=== PATIENT | male | born 1995 | race Hispanic/Latino ===

== ENCOUNTER 2022-03-25 12:07 | Outpatient (CLI) | payer BC | END 2022-03-25 12:08 | disposition home or self-care (01) | LOC: CSHULT 12:07 | PROVIDERS: ATTEND Internal Medicine Gastroenterology | DX: R79.89 Other specified abnormal findings of blood chemistry (principal); E66.9 Obesity, unspecified; R16.0 Hepatomegaly, not elsewhere classified | CPT/HCPCS: 76705 ==

== ENCOUNTER 2022-04-18 09:30 | Day surgery (SDC) | payer BC ==
[2022-04-14 13:12] VITALS: BMI 34.5
[2022-04-18 10:18] VITALS: TEMP 98.8
[2022-04-18 10:44] LABS: #Basophils 0.1 10x3/uL (0.0-0.2); #Eosinphils 0.3 10x3/uL (0.0-0.5); #Monocytes 0.7 10x3/uL (0.0-1.1); #Neutrophils 5.9 10x3/uL (1.5-8.4); %Basophils 0.5 % (0.0-2.0); %Eosinophils 2.8 % (0.0-6.0); %Lymphocytes 28.6 % (18.0-47.0); %Monocytes 7.1 % (0.0-10.0); %Neutrophils 60.6 % (40.0-75.0); Hemoglobin 15.4 g/dL (13.5-17.5); Mean Corpuscular HGB CONC 34.9 g/dL (32.0-36.0); Mean Corpuscular Hemoglobin 30.2 pg (27.0-33.0); Mean Corpuscular Volume 86.5 fl (81.2-95.1); Mean Platelet Volume 9.2 fl (7.4-10.4); Platelet Count 295 10x3/uL (150-450); RBC Distribution Width 12.7 % (11.5-14.5); White Blood Cell (WBC) Count 9.8 10x3/uL (3.5-10.5)
[2022-04-18 10:49] LABS: INR-International Normal Ratio 0.9; PTT 27.6 sec (22.0-33.0); Prothrombin Time 10.3 sec (9.5-12.1)
[2022-04-18] MEDS ORDERED: Lidocaine 1% PF 5 ML VIAL ONE (11:13)
[2022-04-18] MEDS ORDERED: Sodium Bicarbonate 2.5 MEQ/5 ML VIAL ONE (11:14)
[2022-04-18] MEDS ORDERED: Acetaminophen 325 MG TAB ONE (12:31)
[2022-04-18 13:39] VITALS: BP 100/62
== END 2022-04-18 13:05 | disposition home or self-care (01) ==
LOC: CSHULT 09:30
PROVIDERS: ATTEND Physician Assistant Medical
PROC: 0FB23ZX Excision of Left Lobe Liver, Percutaneous Approach, Diagnostic (ICD-10-PCS; principal; 2022-04-18)
DX: K76.0 Fatty (change of) liver, not elsewhere classified (principal); K74.01 Hepatic fibrosis, early fibrosis; K21.9 Gastro-esophageal reflux disease without esophagitis; E66.9 Obesity, unspecified; Z68.34 Body mass index [BMI] 34.0-34.9, adult; Z79.899 Other long term (current) drug therapy
CPT/HCPCS: 47000; 76942; 85025; 85610; 85730; 88307; 88313